=== PATIENT | female | born 1960 | race Caucasian/White ===

== ENCOUNTER 2018-01-15 21:28 | Emergency (ER) | payer OTHER ==
[~2018-01-15] VITALS: Ht 172.7 cm; Wt 65.0 kg
[~2018-01-15 21:28] MED LIST: ALPR1TAB3 PO; BENA25CA4; CETI10CA3; CLON0.1T PO; DOCU50CA5; L-LY500T4; LEVO50TA4 PO; SERT-129 PO; VITA1000 PO; VITATAB11; ZOLP10TA3 PO; [UNRECOGNIZED DRUG - OTHER]; [UNRECOGNIZED DRUG - OTHER]
[2018-01-15 21:51] VITALS: BP 135/70; PULSE 106; RESP 18; TEMP 99.3; O2SAT 98
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
== END 2018-01-15 23:30 | disposition home or self-care (01) ==
LOC: NEPE 21:28
DX: H43.399 Other vitreous opacities, unspecified eye (principal); H53.8 Other visual disturbances; F41.9 Anxiety disorder, unspecified
CPT/HCPCS: 99282